=== PATIENT | female | born 1995 ===

== ENCOUNTER → 2024-12-10 14:23 | Outpatient (CLI) | payer OTHER, SELFPAY ==
[2024-12-10 14:59] LABS: Add Manual Diff / Slide Review NO; Basophils Absolute Auto 0 /uL (0-100); Basophils Percent Auto 0.4 % (0-2); Eosinophils Absolute Auto 0 /uL (0-450); Eosinophils Percent Auto 0.5 % (2-4); Hematocrit 36.4 % (36-46); Hemoglobin 12.4 g/dL (12.0-16.0); Lymphocytes Absolute Auto 1700 /uL (1100-4500); Lymphocytes Percent Auto 17.8 % (25-40); Mean Corpuscular HGB Conc 33.9 % (30-36); Mean Corpuscular Hemoglobin 28.8 PG (26-34); Mean Corpuscular Volume 84.8 fL (80-100); Monocytes Absolute Auto 600 /uL (0-900); Monocytes Percent Auto 6.2 % (3-14); Neutrophils Absolute Auto 7100 /uL (1500-7000); Neutrophils Percent Auto 75.1 % (50-75); Platelet Count 432 X10^3/uL (150-400); White Blood Cell Count 9.5 X10^3/uL (4.5-11.0)
[2024-12-10 15:22] LABS: Hemoglobin A1C% w Est Avg Glu 4.8 % (4.0-6.0)
[2024-12-10 15:29] LABS: Natera Collection Specimen Collected
[2024-12-11 02:38] LABS: RPR Screen Non Reactive (Non Reactive)
[2024-12-11 03:09] LABS: Toxoplasma gohndii IgG <3.0 IU/mL (0.0-7.1); Toxoplasma gondii IgM <3.0 AU/mL (0.0-7.9)
[2024-12-12 01:07] LABS: Varicella IgG Antibody Reactive (Non Reactive)
[2024-12-12 16:56] LABS: Hepatitis B Surface Antigen NEGATIVE s/c (NEGATIVE); Rubella Antibody IgG 10.2 IU/mL (>15)
[2024-12-12 17:01] LABS: HIV 1 & 2 Ab/Ag 4th Gen Combo NEGATIVE (NEGATIVE); Hep C Virus Ab w/Reflex Quant NEGATIVE s/c (NEGATIVE)
[2024-12-13 10:28] LABS: Parvovirus B19 IgG 0.1 index (0.0-0.8); Parvovirus B19 IgM 0.1 index (0.0-0.8)
== END ==
PROVIDERS: Specialist; Referring Provider Obstetrics & Gynecology; Visit Provider Obstetrics & Gynecology
DX: O99.210 Obesity complicating pregnancy, unspecified trimester (principal); E28.2 Polycystic ovarian syndrome; Z3A.10 10 weeks gestation of pregnancy
CPT/HCPCS: 36415; 80055; 83036; 86644; 86695; 86696; 86747; 86777; 86778; 86787; 86803; 86850; 86900; 86901; 87086; 87389

== ENCOUNTER → 2025-01-08 15:06 | Outpatient (CLI) | payer OTHER, SELFPAY ==
[2025-01-08 21:08] LABS: Urine N gonorrhoeae NOT DETECTED
[2025-01-08 21:09] LABS: Urine Chlamydia NOT DETECTED
== END ==
PROVIDERS: Visit Provider Obstetrics & Gynecology
DX: Z34.01 Encounter for supervision of normal first pregnancy, first trimester (principal); Z3A.10 10 weeks gestation of pregnancy
CPT/HCPCS: 87491; 87591

== ENCOUNTER → 2025-01-31 08:23 | Outpatient (CLI) | payer OTHER, SELFPAY | LOC: LAB 08:24 | PROVIDERS: Referring Provider Obstetrics & Gynecology; Visit Provider Obstetrics & Gynecology | DX: Z20.828 Contact with and (suspected) exposure to other viral communicable diseases (principal) | CPT/HCPCS: 36415; 86747 ==

== ENCOUNTER → 2025-02-17 14:52 | Outpatient (CLI) | payer OTHER, SELFPAY | PROVIDERS: Referring Provider Obstetrics & Gynecology; Visit Provider Obstetrics & Gynecology | DX: Z34.92 Encounter for supervision of normal pregnancy, unspecified, second trimester (principal); Z3A.20 20 weeks gestation of pregnancy | CPT/HCPCS: 36415; 82105 ==

== ENCOUNTER → 2025-02-26 12:00 | Outpatient (CLI) | payer OTHER, SELFPAY ==
--- NOTE | 2025-02-26 12:02 | DI.US.S_ITS ---
PROCEDURE: US OB >= 14 WEEKS FETUS INDICATIONS: 20 wk anatomy OUTSIDE/PRIOR DATING DATA: Last menstrual period (LMP): 09/28/24. LMP-based estimated date of delivery ([place]): 07/05/25. First dating scan (date and location): Unknown. Estimated date of delivery ([place]) from first dating scan: 07/06/25. The calculations are made using the working [place] of 07/06/25. TECHNIQUE: Real-time scanning was performed of the fetus, with image documentation and biometric measurements. Endovaginal scanning: Not performed COMPARISON: None. FINDINGS: General: A single living intrauterine gestation is present. Presentation: Transverse, head to maternal left. Placenta: Placental position is anterior , without previa. Amniotic fluid index: 12.6 cm, normal range is 5-24 cm. Single deepest vertical pocket is 4.2 cm. heart rate: 152 beats per minute. Maternal cervical canal: Closed and 3.8 cm long. Normal lower limit is 2.5 cm. biometrics: Biparietal diameter: 5.2 cm, 21 weeks five days Head circumference: 19.2 cm, 21 weeks three days Abdominal circumference: 17.6 cm, 22 weeks three days Femur length: 3.7 cm, 21 weeks four days Clinically estimated gestational age: 21 weeks three days Composite gestational age from present scan: 21 weeks six days Estimated weight and percentile: 468 g, 75th percentile Anatomic survey: Neuro: Ventricles are non-dilated at less than 10 mm. Cisterna magna is normal at 3-11 mm. Cerebellum is normal in size and morphology. Nuchal skin fold: Normal at less than 6 mm between 14-21 weeks gestational age. Face: Nose and lips, facial profile are normal. Spine: No evidence for spina bifida. Heart: 4-chambered heart is present, with normal ventricular outflow tracts. Diaphragm: Diaphragm is intact. Stomach: Left-sided stomach is present. Kidneys: No hydronephrosis. Normal is less than 5 mm in 2nd trimester, less than 7 mm in 3rd trimester. Cord: 3-vessel cord has orthotopic insertion. Bladder: Normal in size. Extremities: All 4 extremities identified. IMPRESSION: Single living intrauterine with estimated weight at the 75th percentile. Symmetric growth and normal anatomy. Composite gestational age is three days ahead of the expected gestational age. Anterior placenta. Closed cervix and normal amniotic fluid volume. We strive to produce accurate, complete, and clear reports of imaging services. To assist us in improving patient care, this report was composed using standard report templates and voice recognition software. Therefore, it may contain abnormal punctuation, insertions and/or omissions. Occasional wrong-word or sound-alike substitutions may occur. Though we review the report and make efforts to correct it, we do recommend that the report be read carefully in proper context to recognize any text inaccuracies. Dictated by: Mayelin Parker M.D. on 02/28/2025 at 11:14 Approved by: Mayelin Parker M.D. on 02/28/2025 at 11:25
== END ==
PROVIDERS: Visit Provider Obstetrics & Gynecology
DX: Z34.02 Encounter for supervision of normal first pregnancy, second trimester (principal); Z3A.21 21 weeks gestation of pregnancy
CPT/HCPCS: 76811

== ENCOUNTER → 2025-03-24 10:23 | Outpatient (CLI) | payer OTHER, SELFPAY | LOC: LAB 10:24 | PROVIDERS: Visit Provider Student in an Organized Health Care Education/Training Program | DX: N39.0 Urinary tract infection, site not specified (principal) | CPT/HCPCS: 87086 ==

== ENCOUNTER → 2025-04-08 09:42 | Outpatient (CLI) | payer OTHER, SELFPAY ==
[2025-04-08 11:23] LABS: Hematocrit 34.2 % (36-46); Hemoglobin 11.5 g/dL (12.0-16.0)
[2025-04-08 11:44] LABS: GTT (PREG) 1 Hour PP 50gm Dose 85 mg/dL (76-139)
== END ==
PROVIDERS: Referring Provider Student in an Organized Health Care Education/Training Program; Visit Provider Student in an Organized Health Care Education/Training Program
DX: Z13.0 Encounter for screening for diseases of the blood and blood-forming organs and certain disorders involving the immune mechanism (principal); Z13.1 Encounter for screening for diabetes mellitus
CPT/HCPCS: 36415; 82950; 85014; 85018

== ENCOUNTER → 2025-05-02 07:02 | Outpatient (CLI) | payer OTHER, SELFPAY ==
--- NOTE | 2025-05-02 07:03 | DI.US.S_ITS ---
PROCEDURE: US OB LIMITED INDICATIONS: OBESITY - GROWTH OUTSIDE/PRIOR DATING DATA: Last menstrual period (LMP): 09/28/2024. LMP-based estimated date of delivery ([place]): 07/05/2025. First dating scan (date and location): Not reported Estimated date of delivery ([place]) from first dating scan: 07/06/2025. The calculations are made using the working [place] of 07/06/2025. TECHNIQUE: Real-time scanning was performed of the fetus, with image documentation. Endovaginal scanning: No COMPARISON: None. FINDINGS: A single living intrauterine gestation is present. Presentation: Vertex. Placenta: Placental position is anterior, without previa. Amniotic fluid index: 16.8 cm, normal range is 5-24 cm. Single deepest vertical pocket is 4.9 cm. heart rate: 135 beats per minute. Maternal cervical canal: 4.4 cm long. Normal lower limit is 2.5 cm. BPD: 8.3 cm, 33 week 2 day, 97 percentile HC: 30.2 cm, 33 week 4 day, 88 percentile AC: 27.1 cm, 31 week 1 day, 60 percentile FL: 5.9 cm, 30 week 4 day, 32 percentile EFW: 1759 g, 62 percentile EGA by dates: 30 week 5 day EGA by ultrasound: 32 week 1 day. IMPRESSION: Single live intrauterine consistent with 32 week 1 day gestation by current ultrasound. Biparietal diameter at the 97th percentile. Overall EFW 62 percentile Approved by: Jae Miles M.D. on 05/02/2025 at 14:44
== END ==
PROVIDERS: Referring Provider Obstetrics & Gynecology; Visit Provider Obstetrics & Gynecology
DX: O99.213 Obesity complicating pregnancy, third trimester (principal); E66.01 Morbid (severe) obesity due to excess calories; Z3A.32 32 weeks gestation of pregnancy
CPT/HCPCS: 76815; 76817

== ENCOUNTER 2025-05-28 12:29 | Outpatient (CLI) | payer OTHER, SELFPAY | END 2025-05-28 13:25 | disposition home or self-care (01) | LOC: LABOR 13:10 → OB 15:00 | PROVIDERS: Referring Provider Obstetrics & Gynecology; Visit Provider Obstetrics & Gynecology | DX: Z34.03 Encounter for supervision of normal first pregnancy, third trimester (principal); Z3A.29 29 weeks gestation of pregnancy | CPT/HCPCS: 59025; G0378; G0379 ==

== ENCOUNTER 2025-06-06 10:54 | Outpatient (CLI) | payer OTHER, SELFPAY | END 2025-06-06 11:38 | disposition home or self-care (01) | LOC: LABOR 11:24 → OB 16:46 | PROVIDERS: Referring Provider Obstetrics & Gynecology; Visit Provider Obstetrics & Gynecology | DX: O99.213 Obesity complicating pregnancy, third trimester (principal); Z3A.35 35 weeks gestation of pregnancy | CPT/HCPCS: 59025; G0378; G0379 ==

== ENCOUNTER → 2025-06-10 09:28 | Outpatient (CLI) | payer OTHER, SELFPAY ==
[2025-06-10 14:46] LABS: Strep Grp B PCR NEG for Grp B Strep
== END ==
PROVIDERS: Visit Provider Obstetrics & Gynecology
DX: Z34.03 Encounter for supervision of normal first pregnancy, third trimester (principal); Z3A.36 36 weeks gestation of pregnancy
CPT/HCPCS: 87653

== ENCOUNTER 2025-06-10 09:30 | Outpatient (CLI) | payer OTHER, SELFPAY | END 2025-06-10 10:12 | disposition home or self-care (01) | LOC: OB 06-11 08:15 | PROVIDERS: Referring Provider Obstetrics & Gynecology; Visit Provider Obstetrics & Gynecology | DX: O99.213 Obesity complicating pregnancy, third trimester (principal); E66.9 Obesity, unspecified; Z3A.36 36 weeks gestation of pregnancy | CPT/HCPCS: 59025; 87653; G0378; G0379 ==